=== PATIENT | female | born 1945 | race Caucasian/White ===

== ENCOUNTER 2019-01-15 16:50 | Emergency (ER) | payer OTHER, MEDICAID ==
[~2019-01-15] VITALS: Ht 144.8 cm; Wt 57.6 kg
[2019-01-15 17:17] VITALS: BP 127/85
[2019-01-15] MEDS ORDERED: KETOROLAC 60 MG/2 ML VIAL IM ONE (17:40)
--- NOTE | 2019-01-15 17:45 | NUR ---
LAB AT BEDSIDE.
[2019-01-15 18:00] LABS: APPEARANCE,URINE CLOUDY (CLEAR); BILIRUBIN,URINE NEGATIVE (NEGATIVE); BLOOD, URINE 3+ (NEGATIVE); COLOR,URINE YELLOW (YELLOW); LEUKOCYTE ESTERASE ,URINE 3+ (NEGATIVE); NITRITE, URINE POSITIVE (NEGATIVE); UGLUCOSE NEGATIVE (NEGATIVE)
[2019-01-15 18:00] LABS: BASOPHILS % (AUTO) 0.3 % (0.0-2.0); EOSINOPHILS % (AUTO) 0.1 % (0.0-4.0); HEMATOCRIT 36.5 % (36-48); HEMOGLOBIN 12.2 g/dL (12.0-16.0); LYMPHOCYTES % (AUTO) 11.3 % (20.5-51.1); MEAN CORPUSCULAR HEMOGLOBIN 28 pg (27-31); MEAN CORPUSCULAR HGB CONC 33 g/dL (33-37); MEAN CORPUSCULAR VOLUME 82.7 fL (80-94); MONOCYTES # (AUTO) 0.6 K/uL (0.8-1.0); MONOCYTES % (AUTO) 6.7 % (1.7-9.3); NEUTROPHILS # (AUTO) 7.4 K/uL (1.8-7.7); NEUTROPHILS % (AUTO) 81.6 % (42.2-75.2); PLATELET COUNT (AUTO) 341 K/uL (140-450); RED BLOOD CELL COUNT(AUTO) 4.42 MIL/uL (4.20-5.40); RED CELL DISTRIBUTION WIDTH 14.9 % (11.6-13.7)
[2019-01-15 18:04] LABS: RBC,URINE 20-50 /HPF (0-5); WBC,URINE TOO MANY TO COUNT /HPF (0-5)
[2019-01-15 18:11] LABS: ANION GAP 12.9 (8-16); CHLORIDE 94 mmol/L (98-107); CREATININE 0.7 mg/dL (0.6-1.3); GLUCOSE 116 mg/dL (74-106); POTASSIUM 3.9 mmol/L (3.5-5.1); SODIUM SERUM 130 mmol/L (136-145); UREA NITROGEN, BLOOD 7 mg/dL (7-18)
[2019-01-15 18:16] LABS: PROTHROMBIN TIME 9.9 secs (10.8-13.4)
[2019-01-15 18:17] LABS: ALBUMIN 3.9 g/dL (3.4-5.0); AMYLASE 69 U/L (25-115); ASPARTATE AMINOTRANSFERASE 18 U/L (15-37); LIPASE 135 U/L (73-393); TOTAL BILIRUBIN 0.7 mg/dL (0.0-1.0)
[2019-01-15] MEDS ORDERED: cefTRIAXone 1,000 MG VIAL ONE (18:51)
--- NOTE | 2019-01-15 19:08 | NUR ---
RECIEVED REPORT FROM DAY SHIFT RNLANA.
[2019-01-15 19:28] VITALS: BP 127/85
--- NOTE | 2019-01-15 19:29 | NUR ---
Patient discharged with v/s stable. Written and verbal after care instructions given and explained. Patient alert, oriented and verbalized understanding of instructions. Ambulatory with steady gait. All questions addressed prior to discharge. ID band removed. Patient advised to follow up with PMD. Rx of TRAMADOL, CIPRO given. Patient educated on indication of medication including possible reaction and side effects. Opportunity to ask questions provided and answered.
== END 2019-01-15 19:28 | disposition home or self-care (01) ==
LOC: MED 16:50
DX: N39.0 Urinary tract infection, site not specified (principal); J45.909 Unspecified asthma, uncomplicated; E11.9 Type 2 diabetes mellitus without complications; Z79.82 Long term (current) use of aspirin
CPT/HCPCS: 36415; 80053; 81001; 82150; 82948; 83690; 85025; 85610; 85730; 87086; 96365; 96372; 99283; J0696; J1885; J7060; 87186

== ENCOUNTER 2021-05-28 12:35 | Emergency (ER) | payer OTHER ==
[~2021-05-28] VITALS: Ht 149.9 cm; Wt 58.1 kg
[2021-05-28 12:48] VITALS: BP 137/83
--- NOTE | 2021-05-28 13:30 | NUR ---
PT AMBULATED TO BED
--- NOTE | 2021-05-28 14:11 | NUR ---
75 Y/O F BIB FRIEND FROM HOME, C/O R SIDE ABD PAIN FOR 1 WEEK. DENIES N/V/D, HEMATURIA, DYSURIA, LOWER BACK PAIN. TENDER UPON PALPATION. PT STATES 10 PAIN. PMH: DM2, HYSTERECTOMY NKA MED: BENADRYL
--- NOTE | 2021-05-28 15:07 | NUR ---
VIDEO MANAGER AT PT BEDSIDE.
[2021-05-28] MEDS: KETOROLAC 15 MG/ML VIAL IM ONE (15:11)
[2021-05-28 15:23] LABS: BASOPHILS % (AUTO) 0.4 % (0.0-2.0); EOSINOPHILS % (AUTO) 0.6 % (0.0-4.0); HEMATOCRIT 36.9 % (36-48); HEMOGLOBIN 12.3 g/dL (12.0-16.0); LYMPHOCYTES # (AUTO) 1.6 K/uL (2.5-16.5); LYMPHOCYTES % (AUTO) 33.3 % (20.5-51.1); MEAN CORPUSCULAR HEMOGLOBIN 29 pg (27-31); MEAN CORPUSCULAR HGB CONC 33 g/dL (33-37); MEAN CORPUSCULAR VOLUME 88.4 fL (80-94); MONOCYTES # (AUTO) 0.4 K/uL (0.8-1.0); MONOCYTES % (AUTO) 7.7 % (1.7-9.3); NEUTROPHILS # (AUTO) 2.8 K/uL (1.8-7.7); PLATELET COUNT (AUTO) 359 K/uL (140-450); RED BLOOD CELL COUNT(AUTO) 4.17 MIL/uL (4.20-5.40); RED CELL DISTRIBUTION WIDTH 13.6 % (11.6-13.7); WHITE BLOOD COUNT (AUTO) 4.9 K/uL (4.8-10.8)
--- NOTE | 2021-05-28 15:30 | NUR ---
PT TAKEN TO CT SCAN VIA W/C
[2021-05-28 15:48] LABS: ALBUMIN 3.9 g/dL (3.4-5.0); ANION GAP 11.9 (8-16); ASPARTATE AMINOTRANSFERASE 16 U/L (15-37); CARBON DIOXIDE 27.9 mmol/L (21-32); CHLORIDE 99 mmol/L (98-107); CREATININE 0.7 mg/dL (0.6-1.3); GLUCOSE 98 mg/dL (74-106); LIPASE 116 U/L (73-393); POTASSIUM 3.8 mmol/L (3.5-5.1); SODIUM SERUM 135 mmol/L (136-145); TOTAL BILIRUBIN 0.3 mg/dL (0.0-1.0); UREA NITROGEN, BLOOD 11 mg/dL (7-18)
--- NOTE | 2021-05-28 15:49 | NUR ---
PT RETURNED FROM CT SCAN
--- NOTE | 2021-05-28 17:00 | NUR ---
PT REQUESTING FOR FOOD, PER DR FABIOLA MAHMOOD TO GIVE. ELISEO PROVIDED.
--- NOTE | 2021-05-28 17:21 | NUR ---
Patient appears to be resting comfortably in bed. Vital Signs within normal limits. Respirations even and unlabored.
[2021-05-28 17:23] LABS: APPEARANCE,URINE CLEAR (CLEAR); BILIRUBIN,URINE NEGATIVE (NEGATIVE); BLOOD, URINE NEGATIVE (NEGATIVE); COLOR,URINE YELLOW (YELLOW); LEUKOCYTE ESTERASE ,URINE NEGATIVE (NEGATIVE); NITRITE, URINE NEGATIVE (NEGATIVE); PH,URINE 5.5 (5.0-9.0); UGLUCOSE NEGATIVE (NEGATIVE)
[2021-05-28 18:25] VITALS: BP 147/97
--- NOTE | 2021-05-28 18:25 | NUR ---
Patient discharged with v/s stable. Written and verbal after care instructions given and explained. Patient alert, oriented and verbalized understanding of instructions. Ambulatory with steady gait. All questions addressed prior to discharge. ID band removed. Patient advised to follow up with PMD. Opportunity to ask questions provided and answered.
== END 2021-05-28 18:25 | disposition home or self-care (01) ==
LOC: MED 12:35
DX: R19.03 Right lower quadrant abdominal swelling, mass and lump (principal); I10 Essential (primary) hypertension; J45.909 Unspecified asthma, uncomplicated; E11.9 Type 2 diabetes mellitus without complications
CPT/HCPCS: 36415; 74176; 80053; 81003; 83690; 85025; 96372; 99284; J1885